=== PATIENT | male | born 1995 | race Caucasian/White ===

== ENCOUNTER 2019-06-16 18:53 | Emergency (ER) | payer BC ==
[~2019-06-16] VITALS: Ht 177.8 cm; Wt 73.1 kg
[~2019-06-16 18:53] MED LIST: AMOX500C2 PO; SULF1TAB31 PO
[2019-06-16 19:28] VITALS: BP 151/94; PULSE 84; RESP 19; Ht 177.8 cm; Wt 73.1 kg
== END 2019-06-16 19:48 | disposition home or self-care (01) ==
LOC: E/R 18:53
DX: L03.213 Periorbital cellulitis (principal)
CPT/HCPCS: 99283